=== PATIENT | female | born 1960 | race Caucasian/White ===

== ENCOUNTER 2017-07-07 11:55 | Emergency (ER) | payer BC ==
[2017-07-07] MEDS ORDERED: Diphtheria,Pertussis(Acell),Tetanus Vaccine 0.5 ML SDV inactive IM ONE (12:52)
--- NOTE | 2017-07-07 12:58 | EDM.PDOC ---
ED HPI GENERAL MEDICAL PROBLEM - General Chief Complaint: General Stated Complaint: Cut Finger Time Seen by Provider: 07/07/17 12:00 Source of Information: Reports: Patient History Limitations: Reports: No Limitations - History of Present Illness INITIAL COMMENTS - FREE TEXT/NARRATIVE: According to patient she was trying to cut some potatoes with a clean kitchen knife and accidentally cut her left thumb over the radial aspect. the cut has been bleeding. Pt did apply pressure on the wound, but it has continued to bleed and hence here in the emergency room. No other injuries. Pt is not sure of her tetanus status. No tingling or numbness in the finger. No other complaints. Onset: Today Onset Date: 07/07/17 Onset Time: 11:30 Severity: Mild Improves with: Reports: None Worsens with: Reports: None Associated Symptoms: Denies: Headaches, Nausea/Vomiting, Rash, Weakness - Related Data Allergies Allergy/AdvReac Type Severity Reaction Status Date / Time No Known Allergies Allergy Verified 07/07/17 12:06 Home Meds: Home Meds Cetirizine [ZyrTEC] 10 tab PO DAILY 07/07/17 [History] Social & Family History - Family History Family Medical History: Noncontributory ED ROS GENERAL - Review of Systems Review Of Systems: See Below Constitutional: Denies: Fever, Chills HEENT: Denies: Throat Pain, Throat Swelling Respiratory: Denies: Cough, Sputum Cardiovascular: Denies: Chest Pain, Lightheadedness Endocrine: Denies: Fatigue GI/Abdominal: Denies: Nausea, Vomiting Skin: Denies: Bruising, Rash, Erythema ED EXAM, GENERAL - Physical Exam Exam: See Below Exam Limited By: No Limitations General Appearance: Alert, WD/WN, No Apparent Distress Eye Exam: Bilateral Eye: EOMI, PERRL Ears: Normal External Exam, Normal Canal, Hearing Grossly Normal, Normal TMs Ear Exam: Bilateral Ear: Auricle Normal, Canal Normal, TM normal Nose: Normal Inspection, Normal Mucosa, No Blood Throat/Mouth: Normal Inspection, Normal Lips, Normal Teeth, Normal Gums, Normal Oropharynx, Normal Voice, No Airway Compromise Head: Atraumatic, Normocephalic Neck: Normal Inspection, Supple, Non-Tender, Full Range of Motion Respiratory/Chest: No Respiratory Distress, Lungs Clear, Normal Breath Sounds, No Accessory Muscle Use, Chest Non-Tender Cardiovascular: Normal Peripheral Pulses, Regular Rate, Rhythm, No Edema, No Gallop, No JVD, No Murmur, No Rub Skin Exam: Warm, Other (left thumb: there is a 2cm curved U shalped deep laceration over the radial aspect of the distal phalynx of the thumb. There is active bleeding. Pt has JL ROM of the thumb. Normal capillary refill. ) ED GENERAL MEDICAL PROCEDURES - Laceration/Wound Repair Left Other Appearance: Subcutaneous Distal NVT: Neuro & Vascular Intact Anesthetic Type: Local Local Anesthesia - Lidocaine (Xylocaine): 2% Plain Local Anesthetic Volume: 1cc Skin Prep: Providone-Iodine (Betadine) Closed with: Sutures Suture Size: other (5-O) # of Sutures: 4 Suture Type: Other (monosuf) Sterile Dressing Applied: Provider Tetanus Status Addressed: Yes Complications: No Course - Vital Signs Text/Narrative:: The wound was cleaned and closed under aseptic precautions under local anesthesia. Tube dressing applied. Wound care discussed with patient. advised not to wet the wound for 48 hrs. Daily simple dressing. suture removal in 1 wk. Infection precaution discussed. Pt has no record of tetanus, hence she did receive Tdap today. Last Recorded V/S: Last Vital Signs Temp 98.7 F 07/07/17 12:39 Pulse 67 07/07/17 12:39 Resp 16 07/07/17 12:39 BP 127/75 07/07/17 12:39 Pulse Ox 96 07/07/17 12:39 - Orders/Labs/Meds Orders: Active Orders 24 hr Category Date Time Status Vaccines to be Administered [RC] PER UNIT ROUTINE Care 07/07/17 12:52 Ordered Meds: Medications Discontinued Medications Generic Name Dose Route Start Last Admin Trade Name Freq PRN Reason Stop Dose Admin Diphtheria/Tetanus/Acell Pertussis 0.5 ml 07/07/17 12:52 Boostrix IM 07/07/17 12:53 .ONCE ONE Departure - Departure Time of Disposition: 13:00 Disposition: Home, Self-Care 01 Condition: Good Clinical Impression: Thumb laceration - Discharge Information Instructions: Laceration Care, Adult, [id number] Referrals: PCP,None [Primary Care Provider] - Forms: ED Department Discharge - Problem List & Annotations (1) Thumb laceration SNOMED Code(s): 970785299 Code(s): S61.019A - LACERATION W/O FOREIGN BODY OF THMB W/O DAMAGE TO NAIL, INIT Status: Acute Current Visit: Yes - Problem List Review Problem List Initiated/Reviewed/Updated: Yes - My Orders Last 24 Hours: My Active Orders 07/07/17 12:52 Vaccines to be Administered [RC] PER UNIT ROUTINE - Assessment/Plan Last 24 Hours: My Active Orders 07/07/17 12:52 Vaccines to be Administered [RC] PER UNIT ROUTINE Assessment:: left thumb laceration 2 cm long Plan: The wound was cleaned and closed under aseptic precautions under local anesthesia. Tube dressing applied. Wound care discussed with patient. advised not to wet the wound for 48 hrs. Daily simple dressing. suture removal in 1 wk. Infection precaution discussed. Pt has no record of tetanus, hence she did receive Tdap today.
== END 2017-07-07 12:55 | disposition home or self-care (01) ==
LOC: LB.ED 11:55
DX: S61.012A Laceration without foreign body of left thumb without damage to nail, initial encounter (principal); Z23 Encounter for immunization; Z79.899 Other long term (current) drug therapy; W26.0XXA Contact with knife, initial encounter
CPT/HCPCS: 12001; 90471; 99283-25

== ENCOUNTER 2018-06-11 18:23 | Emergency (ER) | payer BC ==
--- NOTE | 2018-06-11 19:11 | EDM.PDOC ---
ED HPI GENERAL MEDICAL PROBLEM - General Chief Complaint: General Stated Complaint: LIGHTHEADEDNESS Time Seen by Provider: 06/11/18 18:25 Source of Information: Reports: Patient History Limitations: Reports: No Limitations - History of Present Illness INITIAL COMMENTS - FREE TEXT/NARRATIVE: According to patient she was donating blood today. And she had blood taken in 15 -20 minutes. Pt got up and tired to stand and she passed out. She claims she woke up in few seconds and was aware of her surrounding. No chest pain or chest tightness. [place] weak and tired. soon after that she has 2 epsiodes of vomiting and also one bout or large loose stool. She is here in the emergency room for evaluation. Pt claims she ie better but feeling tired. Her vitals area stable. Her blood pressure is 137/72mmhg and her heart rate is 80/minute with SPO2 of 98 % on room air. No other complaints Onset: Today Onset Date: 06/11/18 Severity: Mild Associated Symptoms: Reports: Nausea/Vomiting, Syncope, Weakness. Denies: Confusion, Chest Pain, Cough, Diaphoresis, Fever/Chills, Headaches, Loss of Appetite, Malaise, Rash, Seizure, Shortness of Breath - Related Data Allergies Allergy/AdvReac Type Severity Reaction Status Date / Time No Known Allergies Allergy Verified 06/11/18 19:10 Home Meds: Home Meds Cetirizine [ZyrTEC] 10 tab PO DAILY 07/07/17 [History] Citalopram Hydrobromide [Celexa] 20 mg PO DAILY 06/11/18 [History] Montelukast [Singulair] 10 mg PO DAILY 06/11/18 [History] Past Medical History Respiratory History: Reports: Other (See Below) Other Respiratory History: Environmental allergies Gastrointestinal History: Reports: Other (See Below) Other Gastrointestinal History: Intermittent bloating Genitourinary History: Reports: Other (See Below) Other Genitourinary History: Occasional stress incontinence [employer]RESPONDENT History: Reports: Psychiatric History: Reports: Depression - Past Surgical History Female Surgical History: Reports: Endometrial Ablation Social & Family History - Family History Family Medical History: Noncontributory - Tobacco Use Smoking Status *Q: Unknown Ever Smoked Used Tobacco, but Quit: No Second Hand Smoke Exposure: No - Caffeine Use Caffeine Use: Reports: Coffee - Recreational Drug Use Recreational Drug Use: No ED ROS GENERAL - Review of Systems Review Of Systems: See Below Constitutional: Reports: Weakness. Denies: Fever, Chills, Night Sweats, Diaphoresis, Decreased Appetite HEENT: Denies: Rhinitis, Throat Pain, Throat Swelling Respiratory: Denies: Shortness of Breath, Wheezing, Cough, Sputum Cardiovascular: Reports: Lightheadedness. Denies: Chest Pain GI/Abdominal: Reports: Diarrhea, Flatus, Vomiting. Denies: Abdominal Pain, Black Stool, Bloody Stool, Constipation, Difficulty Swallowing, Nausea : Denies: Dysuria, Frequency Musculoskeletal: Denies: Back Pain, Joint Pain Skin: Denies: Bruising, Pruritis, Rash, Erythema Neurological: Reports: Syncope, Weakness. Denies: Confusion, Dizziness, Headache, Numbness, Tingling, Tremors, Trouble Speaking, Gait Disturbance ED EXAM, GENERAL - Physical Exam Exam: See Below Exam Limited By: No Limitations General Appearance: Alert, WD/WN, No Apparent Distress Eye Exam: Bilateral Eye: EOMI, PERRL Ears: Normal External Exam, Normal Canal, Hearing Grossly Normal, Normal TMs Ear Exam: Bilateral Ear: Auricle Normal, Canal Normal, TM normal Nose: Normal Inspection, Normal Mucosa, No Blood Throat/Mouth: Normal Inspection, Normal Lips, Normal Teeth, Normal Gums, Normal Oropharynx, Normal Voice, No Airway Compromise Head: Atraumatic, Normocephalic Neck: Normal Inspection, Supple, Non-Tender, Full Range of Motion Respiratory/Chest: No Respiratory Distress, Lungs Clear, Normal Breath Sounds, No Accessory Muscle Use, Chest Non-Tender Cardiovascular: Normal Peripheral Pulses, Regular Rate, Rhythm, No Edema, No Gallop, No JVD, No Murmur, No Rub GI/Abdominal: Normal Bowel Sounds, Soft, Non-Tender, No Organomegaly, No Distention, No Abnormal Bruit, No Mass Back Exam: Normal Inspection Extremities: Normal Inspection, Normal Range of Motion, Non-Tender, Normal Capillary Refill, No Pedal Edema Neurological: Alert, Oriented, CN II-XII Intact, Normal Cognition Skin Exam: Warm, Intact EKG INTERPRETATION EKG Date: 06/11/18 Rhythm: NSR Rate (Beats/Min): 58 [place]: Normal P-Wave: Present QRS: Normal ST-T: Normal QT: Normal Course - Vital Signs Text/Narrative:: Pt's clinical exam appears normal. She had a small episode of syncope immediately after blood donation(blood donation happened over 20 minutes). also over that she had bout of diarrhea with vomiting. this appear like hypovolumia induced syncope form blood donation, which happened fast, with underlying viral gastroenteritis. Pt is alert and oriented. Her Vitals are very stable. dDd get EKG is in NSR and CMP appear normal and stable. CBC shows white ocunt of 15.4 which might be related to inflammation Pt reassured that her short episode of passing out are syncope was secondary to the sudden drop in the intravascular volume, which normal readjusts in few hrs. There are no lab abnormalities. She might be having a viral gastroenteritis, which should resolve without any problem. Advised good hydration. also discharge home on zofran 4mg 3 times as needed for vomiting. Return to emergency if syncope reoccur, or is associated with chest pain, tightness, shortness of breath, fever or chills.Otherwise followup in clinic in 1-2 days for recheck. Last Recorded V/S: Last Vital Signs Temp 96.7 F 06/11/18 18:38 Pulse 59 L 06/11/18 18:38 Resp 16 06/11/18 18:38 BP 131/73 06/11/18 18:38 Pulse Ox 98 06/11/18 18:38 - Orders/Labs/Meds Orders: Active Orders 24 hr Category Date Time Status EKG Documentation Completion [RC] ASDIRECTED Care 06/11/18 18:57 Active CBC WITH AUTO DIFF [HEME] Stat Lab 06/11/18 18:55 Ordered COMPREHENSIVE METABOLIC PN,CMP [CHEM] Stat Lab 06/11/18 18:55 Ordered EKG 12 Lead [EK] Routine Ther 06/11/18 18:57 Ordered Departure - Departure Time of Disposition: 20:00 Disposition: Home, Self-Care 01 Condition: Fair Clinical Impression: Syncope, Gastroenteritis - Discharge Information Forms: ED Department Discharge - Problem List & Annotations (1) Gastroenteritis SNOMED Code(s): 65242334 Code(s): K52.9 - NONINFECTIVE GASTROENTERITIS AND COLITIS, UNSPECIFIED Status: Acute (2) Syncope SNOMED Code(s): 169116752 Code(s): R55 - SYNCOPE AND COLLAPSE Status: Acute - Problem List Review Problem List Initiated/Reviewed/Updated: Yes - My Orders Last 24 Hours: My Active Orders 06/11/18 18:55 CBC WITH AUTO DIFF [HEME] Stat COMPREHENSIVE METABOLIC PN,CMP [CHEM] Stat 06/11/18 18:57 EKG Documentation Completion [RC] ASDIRECTED EKG 12 Lead [EK] Routine - Assessment/Plan Last 24 Hours: My Active Orders 06/11/18 18:55 CBC WITH AUTO DIFF [HEME] Stat COMPREHENSIVE METABOLIC PN,CMP [CHEM] Stat 06/11/18 18:57 EKG Documentation Completion [RC] ASDIRECTED EKG 12 Lead [EK] Routine Assessment:: Syncope post blood transfusion Gastroenteritis Plan: Pt's clinical exam appears normal. She had a small episode of syncope immediately after blood donation(blood donation happened over 20 minutes). also over that she had bout of diarrhea with vomiting. this appear like hypovolumia induced syncope form blood donation, which happened fast, with underlying viral gastroenteritis. Pt is alert and oriented. Her Vitals are very stable. dDd get EKG is in NSR and CMP appear normal and stable. CBC shows white ocunt of 15.4 which might be related to inflammation Pt reassured that her short episode of passing out are syncope was secondary to the sudden drop in the intravascular volume, which normal readjusts in few hrs. There are no lab abnormalities. She might be having a viral gastroenteritis, which should resolve without any problem. Advised good hydration. also discharge home on zofran 4mg 3 times as needed for vomiting. Return to emergency if syncope reoccur, or is associated with chest pain, tightness, shortness of breath, fever or chills.Otherwise followup in clinic in 1-2 days for recheck.
[2018-06-11] MEDS ORDERED: Ondansetron 4 MG Tab.DIS ONE (19:20)
== END 2018-06-11 20:05 | disposition home or self-care (01) ==
LOC: LB.ED 18:23
DX: K52.9 Noninfective gastroenteritis and colitis, unspecified (principal); R55 Syncope and collapse
CPT/HCPCS: 36415; 80053; 85025; 93005; 99284-25; A9270-GY

== ENCOUNTER → 2021-07-07 | Day surgery (SDC) | payer BC ==
[~2021-07-07] MED LIST: Metoclopramide 10 MG/2 ML SDV IV PRN; Propofol 200 MG/20 ML SDV ONE; Sodium Chloride 0.9% 1,000 ML IV SCH
--- NOTE | 2021-07-07 12:22 | OR ---
DATE OF OPERATION: 07/07/2021 SURGEON: Ever Grace MD PREOPERATIVE DIAGNOSIS: Screening colonoscopy. POSTOPERATIVE DIAGNOSIS: Screening colonoscopy. PROCEDURE: Screening colonoscopy. ANESTHESIA: MAC. ESTIMATED BLOOD LOSS: None. COMPLICATIONS: None. INDICATION FOR THE PROCEDURE: The patient is a 61-year-old female, here today for screening colonoscopy. Last scope was about 10 years ago, normal per the patient. Denies any change in bowel habits since that time. DESCRIPTION OF PROCEDURE: Informed consent was obtained from the patient. The patient was taken to the operating room, placed on table in left lateral decubitus position. Monitored anesthesia care was administered. Digital rectal exam was performed, it was normal. Colonoscope was then advanced through the anus, directed towards the cecum. Cecum was reached and identified by appendiceal orifice and ileocecal valve. Colonoscope was then slowly withdrawn. No polyps. No masses. No areas of ischemia or inflammation identified. Did have a few small diverticula in the sigmoid colon. Rectum was also otherwise unremarkable. Colonoscope was then withdrawn. FINDINGS: Minimal sigmoid diverticulosis, otherwise normal. RECOMMENDATIONS: Would recommend repeat screening colonoscopy in 10 years. JONATHAN/MONCHO /[id number]
== END ==
LOC: LB.SDS 11:51
PROVIDERS: ATTEND Surgery
DX: Z12.11 Encounter for screening for malignant neoplasm of colon (principal); K57.30 Diverticulosis of large intestine without perforation or abscess without bleeding; Z79.899 Other long term (current) drug therapy; Z88.2 Allergy status to sulfonamides
CPT/HCPCS: 45378; J2704